=== PATIENT | female | born 1990 | race Caucasian/White ===

== ENCOUNTER 2024-09-14 14:19 | Emergency (ER) | payer MEDICAID ==
[~2024-09-14] VITALS: Ht 152.4 cm; Wt 74.0 kg
[2024-09-14 14:21] VITALS: TEMP 36.9; O2SAT 99
[2024-09-14 16:14] VITALS: BP 145/79; PULSE 109; RESP 16
[2024-09-14] MEDS: KETOROLAC 30MG/ML VIAL IM ONE (16:14)
[2024-09-14 16:26] LABS: CLARITY URINE CLOUDY (CLEAR); COLOR URINE YELLOW (YELLOW); GLUCOSE URINE TRACE (NEGATIVE); KETONES URINE NEGATIVE (NEGATIVE); LEUKOCYTE ESTERASE URINE 2+ (NEGATIVE); NITRITE URINE NEGATIVE (NEGATIVE); OCCULT BLOOD URINE 2+ (NEGATIVE); PH URINE 7.5 (4.5-8.0); PROTEIN URINE NEGATIVE (NEGATIVE); SPECIFIC GRAVITY URINE 1.008 (1.005-1.030); UROBILINOGEN URINE 0.2 E.U./dL (0.2-1.0)
[2024-09-14 17:15] LABS: BACTERIA URINE 2+; SQUAMOUS EPITHELIAL CELL URINE 1+ /lpf (RARE/1+)
[2024-09-14] MEDS ORDERED: PHEN-815 MT (18:48)
[2024-09-14] MEDS ORDERED: NITR-87 MT (18:48)
== END 2024-09-14 18:53 | disposition home or self-care (01) ==
LOC: ER 14:19
DX: N39.0 Urinary tract infection, site not specified (principal); Z86.39 Personal history of other endocrine, nutritional and metabolic disease
CPT/HCPCS: 99285; 76830; 76856; 81003; 96372; J1885